=== PATIENT | male | born 1955 | race Caucasian/White ===

== ENCOUNTER 2021-06-30 12:20 | Outpatient (CLI) | payer OTHER, SELFPAY ==
--- NOTE | 2021-06-30 12:40 | CT_ITS ---
WS: [id number] LDCT LUNG CANCER SCREENING TECHNIQUE: Noncontrast CT of the chest with coronal and sagittal reformatted images. CLINICAL INFORMATION: SCREENING COMPARISON: None. DLP: 69.32 mGy.cm DIvol: Mean CTDIvol: 1.60 (mGy) All CT scans at [facility] use at least one of these dose optimization techniques: automat ed exposure control; mA and/or kV adjustment per patient size (includes targeted exams where dose is matched to clinical indication); or iterative reconstruction. FINDINGS: Both lungs are well aerated. No acute pulmonary infiltrates. Peripherally calcified RIGHT thyroid nod ule measuring 2.2 x 2.2 CM. Normal caliber thoracic aorta. Aortic calcification. Coronary calcificati on. No mediastinal or hilar lymphadenopathy. Adrenal glands are normal. Small splenule. Small esophageal hiatal hernia. Splenic artery calcificati on. Cholecystectomy clips. Mild thoracic kyphosis. Anterior wedging in the lower thoracic and upper l umbar spine. Mild compression superior endplate T3 and T5. CT/CT lung screening [id number] IMPRESSION: 2.2 x 2.2 cm peripherally calcified RIGHT thyroid nodule. This can be followed up with ultrasound. LUNG-RADS: 1S-Negative with Significant Findings FOLLOW UP: 12 Month: Continue annual screening with LDCT
== END 2021-06-30 12:21 | disposition home or self-care (01) ==
LOC: RAD 12:23
PROVIDERS: PCP Family Medicine; Visit Provider Family Medicine
DX: Z12.2 Encounter for screening for malignant neoplasm of respiratory organs (principal)
CPT/HCPCS: 71271